=== PATIENT | male | born 1965 | race Hispanic/Latino ===

== ENCOUNTER → 2019-08-09 | Outpatient (CLI) | payer OTHER ==
--- NOTE | 2019-08-09 14:39 | Diagnostic Imaging Report ---
EXAM: Renal Ultrasound INDICATION: ^MICROSCOPIC HEMATURIA COMPARISON: None TECHNIQUE: Transverse and longitudinal images of the kidneys and bladder were obtained. FINDINGS: Right Kidney: Length: 13.3 cm Appearance: Normal echogenicity. Collecting system: No hydronephrosis Stones: None Cyst/Mass: None Left Kidney: Length: 13.6 cm Appearance: Normal echogenicity. Collecting system: No hydronephrosis Stones: None Cyst/Mass: None Bladder: No mass or calculi. Bilateral ureteral jets visualized. Prevoid volume estimate of 100.1 cc. The prostate measures 2.3 x 2.7 x 2.7 cm with volume estimate of 9 cc. IMPRESSION: No hydronephrosis or renal calculi. Signed by: Landry Mulligan MD on 08/09/2019 2:36 PM
== END ==
LOC: US 13:17
PROVIDERS: ATTEND Urology
DX: R31.21 Asymptomatic microscopic hematuria (principal)
CPT/HCPCS: 76770